=== PATIENT | female | born 1955 | race Caucasian/White ===

== ENCOUNTER 2017-12-23 16:00 | Inpatient (IN) | payer BC ==
[~2017-12-23] VITALS: Ht 162.6 cm; Wt 105.7 kg
[2018-01-12] MEDS ORDERED: Hair, Skin & N1 EACH PO (10:53)
[2018-01-12] MEDS ORDERED: CHOL10002 PO (10:53)
[2018-01-12] MEDS ORDERED: MELO7.5 PO (10:57)
[2018-01-12] MEDS ORDERED: ESTR2 PO (11:00)
[2018-02-01 04:25] LABS: BASOPHILS ABSOLUTE AUTO 0.01 K/mm3 (0.00-0.23); BASOPHILS PERCENT AUTO 0 % (0-2); EOSINOPHILS ABSOLUTE AUTO 0.03 K/mm3 (0.00-0.68); EOSINOPHILS PERCENT AUTO 0 % (0-6); Hematocrit 34.4 % (33.0-51.0); Hemoglobin 11.5 g/dL (11.5-16.0); IMMATURE GRAN ABSOLUTE AUTO 0.03 K/mm3 (0.00-0.10); IMMATURE GRAN PERCENT AUTO 0 % (0-1); LYMPHOCYTES ABSOLUTE AUTO 1.78 K/mm3 (0.84-5.20); LYMPHOCYTES PERCENT AUTO 19 % (21-46); MONOCYTES PERCENT AUTO 8 % (4-13); Mean Corpuscular HGB 30.3 pg (26.0-34.0); Mean Corpuscular HGB Conc 33.4 g/dL (31.5-36.5); Mean Corpuscular Volume 91 fL (80-100); Mean Platelet Volume 9.7 fL (9.1-12.4); NEUTROPHILS ABSOLUTE AUTO 6.91 K/mm3 (1.96-9.15); NEUTROPHILS PERCENT AUTO 72 % (41-73); Platelet Count 239 K/mm3 (150-400); RDW Coefficient Variation 13.2 % (11.7-14.2); White Blood Cell Count 9.56 K/mm3 (4.00-11.30)
[2018-02-01 04:46] LABS: Anion Gap 7 mmol/L (6-16); Blood Urea Nitrogen 16 mg/dL (8-24); Bun/Creatinine Ratio 22.9 (12.0-20.0); CO2, Blood 26 mmol/L (21-32); Calcium, Blood 8.6 mg/dL (8.5-10.1); Chloride, Blood 107 mmol/L (98-108); Glomerular Filtration Rate >60 (60-); Glucose, Blood 111 mg/dL (70-99); Magnesium, Blood 2.1 mg/dL (1.6-2.4); Potassium, Blood 4.2 mmol/L (3.5-5.5); Sodium, Blood 140 mmol/L (136-145)
[2018-02-01] MEDS ORDERED: OXYC5 PO (10:22)
[2018-02-01] MEDS ORDERED: ACETAMINOPHEN500 MG PO (10:22)
[2018-02-01] MEDS ORDERED: Aspirin EC325 MG PO (10:23)
== END 2018-02-01 10:49 | disposition home or self-care (01) | DRG 483 ==
LOC: SURS 01-31 05:54 → PRE IP 01-31 07:30 → SURS 01-31 13:51
PROVIDERS: Orthopaedic Surgery
PROC: 0RRJ0J6 Replacement of Right Shoulder Joint with Synthetic Substitute, Humeral Surface, Open Approach (ICD-10-PCS; principal; 2018-01-31 07:30)
DX: M19.011 Primary osteoarthritis, right shoulder (principal); Z68.41 Body mass index [BMI] 40.0-44.9, adult
CPT/HCPCS: 36415; 73030; 80048; 83735; 85025; 86850; 86900; 86901; 88300; 97110; 97116; 97162; 97166; 97530; 97535; C1776; G8978; G8979; G8987; G8988; G8989; J0171; J0690; J0735; J1100; J1885; J2250; J2370; J2405; J2795; J3010; J7120